=== PATIENT | male | born 1955 | race Caucasian/White ===

== ENCOUNTER → 2019-07-29 | Outpatient (CLI) | payer MEDICAID | LOC: COL.PUL 07-25 11:20 | DX: J40 Bronchitis, not specified as acute or chronic (principal); Z87.891 Personal history of nicotine dependence ==

== ENCOUNTER → 2020-09-13 | Outpatient (CLI) | payer MEDICARE, MEDICAID | LOC: COL.VAS 12:58 | DX: M79.604 Pain in right leg (principal); M79.605 Pain in left leg ==

== ENCOUNTER 2021-01-05 11:32 | Emergency (ER) | payer MEDICARE, MEDICAID ==
[~2021-01-05] VITALS: Ht 175.3 cm; Wt 93.2 kg
[2021-01-05 11:42] VITALS: TEMP 97.5
[2021-01-05] MEDS ORDERED: NORCO 325 MG-51 TAB PO (12:34)
[2021-01-05 13:00] VITALS: BP 156/92; PULSE 90
== END 2021-01-05 13:00 | disposition home or self-care (01) ==
LOC: COL.ER 11:32
DX: S59.902A Unspecified injury of left elbow, initial encounter (principal); Z87.891 Personal history of nicotine dependence; W01.0XXA Fall on same level from slipping, tripping and stumbling without subsequent striking against object, initial encounter; Y93.89 Activity, other specified

== ENCOUNTER → 2022-03-12 | Outpatient (CLI) | payer MEDICAID ==
[~2022-03-12] MED LIST: NORCO 325 MG-51 TAB PO
== END ==
LOC: COL.RAD 12:57
DX: Z12.2 Encounter for screening for malignant neoplasm of respiratory organs (principal); Z87.891 Personal history of nicotine dependence

== ENCOUNTER → 2022-04-11 | Outpatient (CLI) | payer MEDICARE, MEDICAID | LOC: COL.RAD 10:12 | DX: Z87.891 Personal history of nicotine dependence (principal) ==

== ENCOUNTER 2022-09-21 15:53 | Emergency (ER) | payer OTHER, MEDICARE, MEDICAID ==
[~2022-09-21] VITALS: Ht 175.3 cm; Wt 90.9 kg
[~2022-09-21 15:53] MED LIST changes: +ANORO; +ARNUITY IH; +CELEBREX 200MG200 MG PO; +CIPRO 500MG TA500 MG PO; +FLOVENT 110MCG7.9 GM IH; +PREDNISONE20 MG PO; +PROAIR HFA0.09 MG/AC IH; +PULMICORT90 MCG/Act IH; +TAMIFLU 75MG75 MG PO; +TYLENOL 500MG500 MG PO
[2022-09-21 15:54] VITALS: TEMP 97.9
[2022-09-21 16:39] LABS: HEMATOCRIT 42.7 % (42.0-52.0); HEMOGLOBIN 14.5 g/dl (13.5-18.0); MEAN CELL VOLUME 89 fl (80.0-100.0); MEAN CORPUSCULAR HEMOGLOBIN 30 pg (27-31); MEAN CORPUSCULAR HGB CONC 34 g/dl (33.0-37.0); MEAN PLATELET VOLUME 9.1 fl (7.4-10.4); PLATELET COUNT 204 K/mm3 (130-400); RED BLOOD COUNT 4.81 M/mm3 (4.20-5.60); REDCELL DISTRIBUTION WIDTH-CV 12.4 % (11.5-14.5)
[2022-09-21 17:02] LABS: ALANINE AMINOTRANSFERASE 22 U/L (0-55); ALBUMIN 3.9 gm/dL (3.4-4.8); ALCOHOL(ethanol),MEDICAL < 10 mg/dL (0-10); ALKALINE PHOSPHATASE 69 U/L (40-150); ANION GAP 11 mmol/L (7-16); AST,SGOT 25 U/L (5-34); BILIRUBIN,TOTAL 0.4 mg/dL (0.2-1.2); BLOOD UREA NITROGEN 16 mg/dL (8-26); CALCIUM 9.6 mg/dL (8.4-10.2); CARBON DIOXIDE 22 mmol/L (23-31); CHLORIDE 104 mmol/L (98-107); CREATININE, serum 1.13 mg/dL (0.72-1.25); GLUCOSE 121 mg/dL (70-99); POTASSIUM 4.2 mmol/L (3.5-4.5); SODIUM 137 mmol/L (136-145)
[2022-09-21 17:35] LABS: BAND 7 % (0-10); LYMPHOCYTE 15 % (20.0-51.0); NEUTROPHILS 71 % (42.0-75.2); PLATELET ESTIMATE NORMAL (NORMAL)
[2022-09-21] MEDS ORDERED: NORCO 325 MG-51 TAB PO (18:15)
[2022-09-21 18:41] VITALS: BP 137/93; PULSE 100
== END 2022-09-21 18:56 | disposition home or self-care (01) ==
LOC: COL.ER 15:53
PROVIDERS: Family Medicine
DX: M54.50 Low back pain, unspecified (principal); G89.29 Other chronic pain; R00.0 Tachycardia, unspecified; M54.2 Cervicalgia; Z28.310 Unvaccinated for COVID-19
CPT/HCPCS: J2270; J2405; J7030

== ENCOUNTER → 2022-10-14 | Outpatient (CLI) | payer MEDICARE | LOC: COL.CARD 11:20 | DX: R55 Syncope and collapse (principal) ==